=== PATIENT | female | born 1950 | race Caucasian/White ===

== ENCOUNTER 2025-01-09 19:31 | Outpatient (REF) | payer MEDICARE, SELFPAY ==
[2025-01-09 21:15] LABS: HCT 40.7 % (36.0-46.0); HGB 13.4 g/dL (11.2-15.7); MCH 31.2 pg (27.0-33.0); MCHC 32.9 % (32.0-36.0); MCV 95 fL (80-95); MPV 11.6 fL (8.0-11.0); Platelet Count 221 10^3/uL (130-400); RBC 4.29 10^6/uL (3.93-5.22); RDW 12.4 % (11.7-14.6); RDW-SD 43.0 fL; WBC 5.42 10^3/uL (4.4-10.8)
[2025-01-09 21:34] LABS: Anion Gap 8.3 mmol/L (3-11); BUN 8 mg/dL (7-18); CO2 29.7 mmol/L (21.0-32.0); Calcium 8.8 mg/dL (8.5-10.1); Calculated LDL 148 mg/dL (<100); Chloride 101 mmol/L (98-107); Cholesterol 245 mg/dL (<200); Estimated GFR 95.31 (mL/min/1.73m2); Glucose 80 mg/dL (74-106); HDL Cholesterol 77 mg/dL (>or=50); Potassium 4.4 mmol/L (3.5-5.1); Sodium 139 mmol/L (136-145); TSH (W/Ref FT4) 3.26 uIU/mL (0.36-3.74); Triglyceride 104 mg/dL (<150)
== END 2025-01-09 19:32 | disposition home or self-care (01) ==
LOC: NCHCN 19:31
PROVIDERS: Visit Provider Nurse Practitioner Family
DX: E78.49 Other hyperlipidemia (principal); R42 Dizziness and giddiness
CPT/HCPCS: 80048; 80061; 85027; 84443